=== PATIENT | female | born 1995 | race Caucasian/White ===

== ENCOUNTER 2023-03-03 20:20 | Emergency (ER) | payer OTHER ==
[~2023-03-03] VITALS: Ht 160 cm; Wt 55.9 kg
[2023-03-03 20:22] VITALS: BP 111/73
[2023-03-03] MEDS ORDERED: BENZONATATE 100MG CAPSULE PO ONE (23:20)
[2023-03-03] MEDS ORDERED: GI COCKTAIL 50ML BTL(HYOSCYAMINE/MAALOX/LIDOCAINE VISCOUS)(1:3:1) PO ONE (23:20)
[2023-03-04] MEDS ORDERED: BENZ200C70 PO (00:33)
[2023-03-04] MEDS ORDERED: OMEP-173 PO (00:33)
== END 2023-03-04 00:42 | disposition home or self-care (01) ==
LOC: M ED 20:20
DX: R05.9 Cough, unspecified (principal); F17.200 Nicotine dependence, unspecified, uncomplicated; Z88.2 Allergy status to sulfonamides; Z88.8 Allergy status to other drugs, medicaments and biological substances

== ENCOUNTER → 2023-05-18 | Outpatient (REF) | payer OTHER ==
[~2023-05-18] MED LIST: BENZ200C70 PO; OMEP-173 PO
== END ==
LOC: M LAB REF 11:30
DX: K92.9 Disease of digestive system, unspecified (principal)

== ENCOUNTER 2024-08-25 13:34 | Emergency (ER) | payer OTHER ==
[~2024-08-25] VITALS: Ht 160 cm; Wt 63.6 kg
[2024-08-25 13:37] VITALS: TEMP 97.7; O2SAT 99
[2024-08-25 14:40] LABS: BASO % 0.3 % (0.0-1.0); EOS # 0.1 10^3/uL (0.0-0.5); EOS % 0.8 % (0.0-3.0); HEMATOCRIT 40.1 % (36.0-47.0); HEMOGLOBIN 13.7 g/dl (12.0-15.5); LYMPH # 1.1 10^3/uL (1.5-5.0); LYMPH % 18.2 % (24.0-44.0); MEAN CORPUSCULAR HEMOGLOBIN 30.2 pg (27.0-33.0); MEAN CORPUSCULAR HGB CONC 34.2 g/dl (32.0-36.5); MEAN CORPUSCULAR VOLUME 88.5 fl (80.0-96.0); MONO # 0.5 10^3/uL (0.0-0.8); MONO % 8.5 % (2.0-8.0); NEUTROPHILS # 4.4 10^3/uL (1.5-8.5); NEUTROPHILS % 71.9 % (36.0-66.0); PLATELET COUNT, AUTOMATED 198 10^3/uL (150-450); RED BLOOD COUNT 4.53 10^6/uL (4.00-5.40); WHITE BLOOD COUNT 6.1 10^3/uL (4.0-10.0)
[2024-08-25 15:11] LABS: ALBUMIN 3.6 G/DL (3.2-5.2); BILIRUBIN,DIRECT 0.2 MG/DL (<0.4); BILIRUBIN,TOTAL 0.6 MG/DL (0.3-1.2); TOTAL PROTEIN 7.1 G/DL (5.7-8.2)
[2024-08-25 15:43] LABS: HCG, SERUM QUANTITATIVE 141221.9 MIU/ML (<4.2)
[2024-08-25 16:38] VITALS: BP 104/68
[2024-08-25] MEDS ORDERED: DICL10TA PO (17:17)
[2024-08-27] MEDS ORDERED: FOSF3PAC2 PO (20:40)
== END 2024-08-25 17:27 | disposition home or self-care (01) ==
LOC: M ED 13:34 → EEVIPCON 13:34 → M ED 17:27
DX: O21.9 Vomiting of pregnancy, unspecified (principal); R10.2 Pelvic and perineal pain; Z87.59 Personal history of other complications of pregnancy, childbirth and the puerperium; Z3A.01 Less than 8 weeks gestation of pregnancy; Z79.899 Other long term (current) drug therapy; Z88.1 Allergy status to other antibiotic agents; Z88.2 Allergy status to sulfonamides; Z88.8 Allergy status to other drugs, medicaments and biological substances

== ENCOUNTER 2024-12-01 09:43 | Outpatient (CLI) | payer OTHER ==
[~2024-12-01] VITALS: Ht 160 cm; Wt 66.4 kg
[~2024-12-01 09:43] MED LIST changes: +DICL10TA PO; +FOSF3PAC2 PO
[2024-12-01 10:06] VITALS: BP 100/59
[2024-12-01] MEDS ORDERED: PRENTAB9 PO (10:11)
== END 2024-12-01 11:55 | disposition home or self-care (01) ==
LOC: M LDO 09:43
PROVIDERS: ATTEND Specialist
DX: O26.892 Other specified pregnancy related conditions, second trimester (principal); R10.2 Pelvic and perineal pain; Z3A.21 21 weeks gestation of pregnancy

== ENCOUNTER 2024-12-23 16:40 | Outpatient (CLI) | payer OTHER ==
[~2024-12-23] VITALS: Ht 160 cm; Wt 68.2 kg
[~2024-12-23 16:40] MED LIST changes: +PRENTAB9 PO
[2024-12-23 17:05] VITALS: BP 109/63
[2024-12-23] MEDS ORDERED: HOME MED LIST COMPLETE! XX SCH (17:10)
== END 2024-12-23 18:32 | disposition home or self-care (01) ==
LOC: M LDO 16:40
PROVIDERS: ATTEND Advanced Practice Midwife
DX: O26.852 Spotting complicating pregnancy, second trimester (principal); O44.22 Partial placenta previa NOS or without hemorrhage, second trimester; O22.42 Hemorrhoids in pregnancy, second trimester; Z3A.24 24 weeks gestation of pregnancy
CPT/HCPCS: 59025; G0463

== ENCOUNTER 2025-02-02 15:41 | Outpatient (CLI) | payer OTHER ==
[~2025-02-02] VITALS: Ht 160 cm; Wt 70.9 kg
[2025-02-02 16:01] VITALS: BP 107/63
== END 2025-02-02 18:30 | disposition home or self-care (01) ==
LOC: M LDO 15:41
PROVIDERS: ATTEND Specialist
DX: O26.893 Other specified pregnancy related conditions, third trimester (principal); O99.343 Other mental disorders complicating pregnancy, third trimester; O44.43 Low lying placenta NOS or without hemorrhage, third trimester; M79.605 Pain in left leg; R51.9 Headache, unspecified; Z88.1 Allergy status to other antibiotic agents; Z88.8 Allergy status to other drugs, medicaments and biological substances; F43.20 Adjustment disorder, unspecified; R10.2 Pelvic and perineal pain; Z3A.30 30 weeks gestation of pregnancy
CPT/HCPCS: 59025; 93971; G0463

== ENCOUNTER → 2025-02-04 | Outpatient (CLI) | payer OTHER | LOC: M WHC 13:30 | PROVIDERS: ATTEND Obstetrics & Gynecology | DX: Z53.9 Procedure and treatment not carried out, unspecified reason (principal) ==

== ENCOUNTER 2025-04-03 16:02 | Inpatient (IN) | payer OTHER ==
[~2025-04-03] VITALS: Ht 160 cm; Wt 77.0 kg
[2025-04-03] MEDS ORDERED: ACET160S3 PO (16:35)
[2025-04-03] MEDS ORDERED: PREN1CHW4 PO (16:35)
[2025-04-03 16:37] VITALS: BP 123/75; O2SAT 98
[2025-04-03] MEDS ORDERED: HOME MED LIST COMPLETE! XX SCH (16:40)
[2025-04-03 17:05] LABS: PLATELET COUNT, AUTOMATED 155 10^3/uL (150-450)
[2025-04-03] MEDS ORDERED: PENICILLIN G POTASSIUM 5 MU IV 5 MU in DEXTROSE 5% (D5W) MINI-BAG PLU 100 ML IV STA (17:10)
[2025-04-03] MEDS ORDERED: OXYTOCIN DRIP 30 UNITS in IV 1 EA IV PRN (17:10)
[2025-04-03] MEDS ORDERED: LIDOCAINE 1% MDV 20 ML VIAL INFIL PRN (17:10)
[2025-04-03] MEDS ORDERED: METHYLERGONOVINE MALEATE 0.2 MG/ML 1 ML VIAL IM PRN (17:10)
[2025-04-03] MEDS ORDERED: CARBOPROST TROMETHAMINE 250 MCG/ML AMP IM PRN (17:10)
[2025-04-03] MEDS ORDERED: TRANEXAMIC ACID INJection 1,000 MG in NS 100 ML IV PRN (17:10)
[2025-04-03] MEDS: LACTATED RINGER'S 1000 ML IV STA (17:10)
[2025-04-03 17:42] VITALS: BP 118/72
[2025-04-03] MEDS: miSOPROStol 50 MCG 1/2 TABLET PO SCH (17:47)
[2025-04-03] MEDS: LR 1,000 ML IV SCH (17:55)
[2025-04-03 17:59] LABS: HIV 1&2 SCREEN NEGATIVE (NEGATIVE)
[2025-04-03] MEDS: PENICILLIN G POTASSIUM 5 MU IV 5 MU in DEXTROSE 5% (D5W) MINI-BAG PLU 100 ML IV STA (18:05)
[2025-04-03 18:06] LABS: HEPATITIS C VIRUS ABY INDEX 0.04 INDEX (<0.8)
[2025-04-03] MEDS ORDERED: **PENDING PCN ENTRY XX SCH (21:00)
[2025-04-03] MEDS ORDERED: PEN G POT 3,000,000 UNIT/50 ML 3,000,000 UNIT in IV 1 EA IV SCH (21:10)
[2025-04-03] MEDS: PEN G POT 3,000,000 UNIT/50 ML 3,000,000 UNIT in IV 1 EA IV SCH (22:04)
[2025-04-03] MEDS ORDERED: NALOXONE INJ 0.4MG/1ML VIAL IV PRN (23:15)
[2025-04-03] MEDS ORDERED: LR 500 ML IV PRN (23:15)
[2025-04-03] MEDS ORDERED: EPIDURAL/PCA KEYS XX PRN (23:15)
[2025-04-03] MEDS: FENTANYL/ROPIVACAINE/NACL BAG 100 ML EPIDURAL SCH (23:41)
[2025-04-04] VITALS (18 sets, daily range): BP systolic 97–116; BP diastolic 55–72; O2SAT 16–100
[2025-04-04] MEDS ORDERED: LR 1,000 ML IV SCH (02:50)
[2025-04-04] MEDS: OXYTOCIN DRIP 30 UNITS in IV 1 EA IV SCH ×2 (03:19→12:20)
[2025-04-04] MEDS: ONDANSETRON 4MG 2ML VIAL IV PRN (08:31)
[2025-04-04] MEDS: diphenhydrAMINE 50 MG/ML VIAL IV PRN (09:59)
[2025-04-04] MEDS: LR 1,000 ML IV SCH (12:20)
[2025-04-04] MEDS ORDERED: ONDANSETRON 4MG 2ML VIAL IV PRN (12:20)
[2025-04-04] MEDS ORDERED: CALCIUM CARBONATE 500 MG CHEW U/D PO PRN (12:20)
[2025-04-04] MEDS ORDERED: IBUPROFEN 800 MG TAB PO PRN (12:20)
[2025-04-04] MEDS ORDERED: IBUPROFEN 600 MG TAB PO PRN (12:20)
[2025-04-04] MEDS ORDERED: ACETAMINOPHEN 500 MG TAB PO PRN (12:20)
[2025-04-04] MEDS ORDERED: DIBUCAINE 1% OINTMENT 30 GM TOP PRN (12:20)
[2025-04-04] MEDS ORDERED: RHOGAM 300MCG (1500IU) INJ IM SCH (12:20)
[2025-04-04] MEDS ORDERED: ANUSOL HC CREAM 30 GM TOP PRN (12:20)
[2025-04-04] MEDS ORDERED: ACETAMINOPHEN 325 MG TAB PO PRN (12:20)
[2025-04-04] MEDS: ACETAMINOPHEN 325 MG/10.15 ML UDC PO PRN ×2 (14:38→19:24)
[2025-04-04] MEDS: SIMETHICONE 80MG CHEW TAB PO PRN (21:14)
[2025-04-05] MEDS: KETOROLAC 30 MG/ML 1 ML VIAL IV SCH (05:21)
[2025-04-05 06:13] VITALS: BP 123/62; O2SAT 98
[2025-04-05] MEDS: FERROUS SULFATE 325 MG TAB PO SCH (09:22)
[2025-04-05] MEDS: DOCUSATE SODIUM 100 MG CAPSULE PO PRN (09:22)
[2025-04-05] MEDS: PRENATAL VITAMINS CHEWABLE TABLET PO SCH (09:22)
[2025-04-05] MEDS ORDERED: IBUP-1022 PO (17:22)
[2025-04-06] MEDS ORDERED: MEASLES,MUMPS,RUBELLA VACCINE INJ (MMR-II) SC.IMMUN ONE (09:00)
== END 2025-04-05 18:30 | disposition home or self-care (01) | DRG 807 ==
LOC: EEVIPCON 16:02 → M LDI 16:02 → M OBS 04-04 13:58
PROVIDERS: ADMIT Obstetrics & Gynecology; ATTEND Obstetrics & Gynecology
PROC: 3E0P7GC Introduction of Other Therapeutic Substance into Female Reproductive, Via Natural or Artificial Opening (ICD-10-PCS; 2025-04-03)
PROC: 10E0XZZ Delivery of Products of Conception, External Approach (ICD-10-PCS; principal; 2025-04-04)
PROC: 10907ZC Drainage of Amniotic Fluid, Therapeutic from Products of Conception, Via Natural or Artificial Opening (ICD-10-PCS; 2025-04-04)
DX: O99.824 Streptococcus B carrier state complicating childbirth (principal); Z37.0 Single live birth; Z3A.39 39 weeks gestation of pregnancy; Z88.1 Allergy status to other antibiotic agents; Z88.2 Allergy status to sulfonamides; Z88.8 Allergy status to other drugs, medicaments and biological substances